=== PATIENT | male | born 1995 | race Hispanic/Latino ===

== ENCOUNTER 2017-12-03 00:13 | Emergency (ER) | payer SELFPAY ==
[2017-12-03] MEDS ORDERED: ONDANSETRON ODT 4 MG TAB ONE (00:23)
[2017-12-03] MEDS ORDERED: IBUPROFEN 600 MG TABLET ONE (00:23)
== END 2017-12-03 01:14 | disposition home or self-care (01) ==
LOC: EDH 00:13
DX: B34.9 Viral infection, unspecified (principal); R11.2 Nausea with vomiting, unspecified
CPT/HCPCS: 87804